=== PATIENT | male | born 1950 | race Caucasian/White ===

== ENCOUNTER 2016-12-22 13:13 | Inpatient (IN) | payer OTHER ==
[~2016-12-22] VITALS: Ht 177.8 cm; Wt 78.2 kg
[2016-12-22 14:04] LABS: BASOPHIL % 0.3 % (0-2); PLATELET COUNT 159 x10^3mcL (130-400)
[2016-12-22 14:08] LABS: RED CELL DISTRIBUTION WIDTH 15.1 % (11.5-14.5)
[2016-12-22 14:11] LABS: CALCIUM 8.7 mg/dL (8.5-10.1); CARBON DIOXIDE 22.7 mmol/L (21-32); CHLORIDE SERUM 100 mmol/L (98-107); CREATININE SERUM 0.7 mg/dL (0.7-1.3); GFR1 > 60 mL/min; GLUCOSE SERUM 121 mg/dL (74-106); POTASSIUM SERUM 3.4 mmol/L (3.5-5.1); SODIUM SERUM 140 mmol/L (136-145)
[2016-12-22 14:16] LABS: ALBUMIN 3.9 g/dL (3.4-5.0); ALKALINE PHOSPHATASE 128 U/L (46-116); ALT/SGPT 65 U/L (16-63); AST/SGOT 69 U/L (15-37); BILIRUBIN TOTAL 0.79 mg/dL (0.20-1.00)
[2016-12-22 15:56] LABS: AMPHETAMINE QUAL UR NONE DETECTED (NEG <=1000)
[2016-12-22 17:48] VITALS: BP 138/86
[2016-12-22 17:51] VITALS: Ht 177.8 cm; Wt 78.2 kg
[2016-12-22 18:15] LABS: PHOSPHOROUS 1.7 mg/dL (2.5-4.9)
[2016-12-22 18:17] LABS: MAGNESIUM 2.1 mg/dL (1.8-2.4)
[2016-12-22 18:18] LABS: CHOLESTEROL/HDL RATIO 1.9
[2016-12-22 18:22] LABS: T3 TOTAL 0.91 ng/mL
[2016-12-22 18:25] LABS: FREE T4 0.84 ng/dL (0.76-1.46); FREE THYROXINE INDEX 3.1 ug/dL (1.4-4.5); T4(THYROXINE) 8.8 ug/dL (4.7-13.3)
[2016-12-22 21:01] VITALS: BP 121/77
[2016-12-23 05:27] VITALS: BP 140/74
[2016-12-23 06:28] LABS: BASOPHIL % 0.4 % (0-2)
[2016-12-23 06:43] LABS: CALCIUM 8.5 mg/dL (8.5-10.1); CARBON DIOXIDE 28.8 mmol/L (21-32); CHLORIDE SERUM 107 mmol/L (98-107); CREATININE SERUM 0.8 mg/dL (0.7-1.3); GFR1 > 60 mL/min; GLUCOSE SERUM 92 mg/dL (74-106); MAGNESIUM 1.8 mg/dL (1.8-2.4); PHOSPHOROUS 3.7 mg/dL (2.5-4.9); POTASSIUM SERUM 3.8 mmol/L (3.5-5.1); SODIUM SERUM 145 mmol/L (136-145)
[2016-12-23 06:44] LABS: PLATELET COUNT 111 x10^3mcL (130-400); RED CELL DISTRIBUTION WIDTH 15.5 % (11.5-14.5)
[2016-12-23 09:43] VITALS: BP 135/91
[2016-12-23 14:00] VITALS: BP 125/84
[2016-12-23 18:23] VITALS: BP 117/87
[2016-12-23 21:31] VITALS: BP 122/90
[2016-12-24 06:06] VITALS: BP 121/94
[2016-12-24 06:26] LABS: CALCIUM 8.7 mg/dL (8.5-10.1); CARBON DIOXIDE 29.1 mmol/L (21-32); CHLORIDE SERUM 108 mmol/L (98-107); CREATININE SERUM 0.8 mg/dL (0.7-1.3); GFR1 > 60 mL/min; GLUCOSE SERUM 95 mg/dL (74-106); MAGNESIUM 1.8 mg/dL (1.8-2.4); PHOSPHOROUS 4.4 mg/dL (2.5-4.9); POTASSIUM SERUM 3.7 mmol/L (3.5-5.1); SODIUM SERUM 146 mmol/L (136-145)
[2016-12-24 07:17] LABS: BASOPHIL % 0.4 % (0-2); RED CELL DISTRIBUTION WIDTH 14.5 % (11.5-14.5)
[2016-12-24 07:18] LABS: PLATELET COUNT 102 x10^3mcL (130-400)
[2016-12-24 08:35] VITALS: BP 127/86
[2016-12-24] MEDS ORDERED: LIPI10 PO (08:44)
[2016-12-24] MEDS ORDERED: ZESTRIL5 MG PO (08:45)
[2016-12-24] MEDS ORDERED: ATIVAN0.5 M1 PO (08:46)
[2016-12-24 09:53] VITALS: BP 127/86
== END 2016-12-24 13:03 | disposition home or self-care (01) | DRG 391 ==
LOC: ED 13:13 → DU 16:48
PROVIDERS: Emergency Medicine; Family Medicine; ADMIT Family Medicine
DX: K21.9 Gastro-esophageal reflux disease without esophagitis (principal); N17.0 Acute kidney failure with tubular necrosis; G92 Toxic encephalopathy; F10.121 Alcohol abuse with intoxication delirium; E87.0 Hyperosmolality and hypernatremia; T51.0X1A Toxic effect of ethanol, accidental (unintentional), initial encounter; D69.59 Other secondary thrombocytopenia; E87.6 Hypokalemia; E87.8 Other disorders of electrolyte and fluid balance, not elsewhere classified; D64.9 Anemia, unspecified; E78.5 Hyperlipidemia, unspecified; E83.39 Other disorders of phosphorus metabolism; Z68.27 Body mass index [BMI] 27.0-27.9, adult; Y90.7 Blood alcohol level of 200-239 mg/100 ml
CPT/HCPCS: 80307; 84439; C9113; G0480; J2405; J3490; J7030; Q0092

== ENCOUNTER 2017-06-09 15:27 | Inpatient (IN) | payer OTHER ==
[~2017-06-09] VITALS: Ht 180.3 cm; Wt 77.3 kg
[~2017-06-09 15:27] MED LIST: ATIVAN0.5 M1 PO; LIPI10 PO; ZESTRIL5 MG PO
[2017-06-09 16:37] LABS: BASOPHIL % 0.3 % (0-2); PLATELET COUNT 159 x10^3mcL (130-400); RED CELL DISTRIBUTION WIDTH 13.9 % (11.5-14.5)
[2017-06-09 17:44] LABS: CALCIUM 9.3 mg/dL (8.5-10.1); CARBON DIOXIDE 24.6 mmol/L (21-32); CHLORIDE SERUM 100 mmol/L (98-107); CREATININE SERUM 0.9 mg/dL (0.7-1.3); GFR1 > 60 mL/min; GLUCOSE SERUM 131 mg/dL (74-106); POTASSIUM SERUM 3.7 mmol/L (3.5-5.1); SODIUM SERUM 141 mmol/L (136-145)
[2017-06-09 17:49] LABS: ALBUMIN 4.1 g/dL (3.4-5.0); ALKALINE PHOSPHATASE 130 U/L (46-116); ALT/SGPT 107 U/L (16-63); AST/SGOT 82 U/L (15-37); BILIRUBIN TOTAL 0.6 mg/dL (0.20-1.00)
[2017-06-09 17:54] LABS: TOTAL PROTEIN, SERUM 8.7 g/dL (6.4-8.2)
[2017-06-09] MEDS ORDERED: TRAVATAN Z5 ML OP (18:34)
[2017-06-09] MEDS ORDERED: DORZOLAMIDE HYD10 ML OU (18:35)
[2017-06-09 19:15] VITALS: BP 122/89
[2017-06-09 19:47] LABS: MAGNESIUM 2.1 mg/dL (1.8-2.4); PHOSPHOROUS 2.1 mg/dL (2.5-4.9)
[2017-06-09 19:48] LABS: T3 TOTAL 0.81 ng/mL
[2017-06-09 19:58] LABS: FREE T4 0.94 ng/dL (0.76-1.46); FREE THYROXINE INDEX 2.8 ug/dL (1.4-4.5); T4(THYROXINE) 8.1 ug/dL (4.7-13.3)
[2017-06-09 20:30] LABS: CHOLESTEROL/HDL RATIO 1.9
[2017-06-09 20:54] VITALS: BP 136/90
[2017-06-10 00:40] LABS: microscopic required? YES; urine erythrocyte NEGATIVE (NEGATIVE)
[2017-06-10 00:54] LABS: AMPHETAMINE QUAL UR NONE DETECTED (NEG <=1000)
[2017-06-10 05:33] VITALS: BP 129/84
[2017-06-10 06:39] LABS: CALCIUM 8.5 mg/dL (8.5-10.1); CARBON DIOXIDE 31.2 mmol/L (21-32); CHLORIDE SERUM 106 mmol/L (98-107); CREATININE SERUM 0.8 mg/dL (0.7-1.3); GFR1 > 60 mL/min; GLUCOSE SERUM 116 mg/dL (74-106); PHOSPHOROUS 2.8 mg/dL (2.5-4.9); POTASSIUM SERUM 3.4 mmol/L (3.5-5.1); SODIUM SERUM 142 mmol/L (136-145)
[2017-06-10 07:48] VITALS: BP 110/73
[2017-06-10] MEDS ORDERED: COMBIGAN5 ML OP (11:25)
[2017-06-10 13:44] VITALS: BP 127/95
[2017-06-10 17:59] VITALS: BP 137/99
[2017-06-10 21:29] VITALS: BP 122/82
[2017-06-11 05:43] VITALS: BP 142/89
[2017-06-11 06:41] LABS: BASOPHIL % 0.4 % (0-2); RED CELL DISTRIBUTION WIDTH 13.2 % (11.5-14.5)
[2017-06-11 06:52] LABS: CALCIUM 8.5 mg/dL (8.5-10.1); CARBON DIOXIDE 27.9 mmol/L (21-32); CHLORIDE SERUM 109 mmol/L (98-107); CREATININE SERUM 0.8 mg/dL (0.7-1.3); GFR1 > 60 mL/min; GLUCOSE SERUM 102 mg/dL (74-106); POTASSIUM SERUM 3.8 mmol/L (3.5-5.1); SODIUM SERUM 145 mmol/L (136-145)
[2017-06-11 07:34] LABS: PLATELET COUNT 108 x10^3mcL (130-400)
[2017-06-11 08:43] VITALS: BP 145/89
[2017-06-11 12:58] VITALS: BP 138/98
[2017-06-11 17:24] VITALS: BP 145/99
[2017-06-11 21:48] VITALS: BP 137/96
[2017-06-11 22:41] VITALS: BP 139/99
[2017-06-12 06:22] VITALS: BP 143/94
[2017-06-12 08:42] VITALS: BP 142/97
[2017-06-12] MEDS ORDERED: LAC30L PO (13:26)
[2017-06-12] MEDS ORDERED: ATI2I PO (13:26)
[2017-06-12] MEDS ORDERED: FOL1 PO (13:27)
[2017-06-12] MEDS ORDERED: THI100 PO (13:27)
[2017-06-12 14:28] VITALS: BP 139/89
[2017-06-12 14:29] VITALS: BP 139/89
== END 2017-06-12 15:48 | disposition home or self-care (01) | DRG 896 ==
LOC: ED 15:27 → EDBD 17:58 → DU 17:58
PROVIDERS: Emergency Medicine; ADMIT Student in an Organized Health Care Education/Training Program
DX: F10.231 Alcohol dependence with withdrawal delirium (principal); N17.0 Acute kidney failure with tubular necrosis; G92 Toxic encephalopathy; F10.229 Alcohol dependence with intoxication, unspecified; K72.90 Hepatic failure, unspecified without coma; D64.9 Anemia, unspecified; H70.91 Unspecified mastoiditis, right ear; R74.0 Nonspecific elevation of levels of transaminase and lactic acid dehydrogenase [LDH]; H40.9 Unspecified glaucoma; E78.2 Mixed hyperlipidemia; Z68.23 Body mass index [BMI] 23.0-23.9, adult; T51.0X1A Toxic effect of ethanol, accidental (unintentional), initial encounter
CPT/HCPCS: 83880; 84439; G0480; J0696; J1885; J2060; J2405; J2550; J7030; Q0092

== ENCOUNTER 2017-07-28 15:23 | Inpatient (IN) | payer OTHER ==
[~2017-07-28] VITALS: Ht 180.3 cm; Wt 76.4 kg
[~2017-07-28 15:23] MED LIST changes: +ATI2I PO; +COMBIGAN5 ML OP; +DORZOLAMIDE HYD10 ML OU; +FOL1 PO; +LAC30L PO; +THI100 PO; +TRAVATAN Z5 ML OP
--- NOTE | 2017-07-28 15:35 | NUR ---
PT BIBA C/O HEART PALPITATIONS, PER MEDIC PT HAS BEEN DRINKING ALL DAY. PLACED PT ON CM, VSS. PT A/O X 4, PT'S RESP E/U, PT ABLE TO SPEAK FULL SENTENCES. PT'S SIDERAILS UP X 2. PT GIVEN TO LIGHT. AWAITING DR GREENFIELD
[2017-07-28 16:38] LABS: BASOPHIL % 0.1 % (0-2); PLATELET COUNT 217 x10^3mcL (130-400); RED CELL DISTRIBUTION WIDTH 13.8 % (11.5-14.5)
[2017-07-28 16:56] LABS: CARBON DIOXIDE 17.8 mmol/L (21-32); CHLORIDE SERUM 105 mmol/L (98-107); CREATININE SERUM 0.8 mg/dL (0.7-1.3); GFR1 > 60 mL/min; GLUCOSE SERUM 91 mg/dL (74-106); POTASSIUM SERUM 4.3 mmol/L (3.5-5.1); SODIUM SERUM 142 mmol/L (136-145)
[2017-07-28 17:00] LABS: ALBUMIN 4.1 g/dL (3.4-5.0); ALKALINE PHOSPHATASE 129 U/L (46-116); ALT/SGPT 102 U/L (16-63); AST/SGOT 50 U/L (15-37); BILIRUBIN TOTAL 0.55 mg/dL (0.20-1.00); PHOSPHOROUS 3.5 mg/dL (2.5-4.9); URIC ACID 8.8 mg/dL (3.5-7.2)
[2017-07-28 17:01] LABS: CHOLESTEROL 288 mg/dL (<200); HDL CHOLESTEROL 119 mg/dL (40-60); TOTAL PROTEIN, SERUM 8.7 g/dL (6.4-8.2)
--- NOTE | 2017-07-28 17:44 | NUR ---
REPORT GIVEN TO VENKATA
--- NOTE | 2017-07-28 18:00 | NUR ---
RECEIVED FROM ER VIA [facility]. ABLE TO AMBULATE FROM [facility] TO B. MADE COMFORTABLE. ORIENT TO ROOM AND CALL LIGHT SYSTEM. HAS AROMA OF ALCOHOL. VITAL SIGNS TAKEN. ADMISSION COMPLETED BY YANG GRIGGS. TELE #27 SINUS TACH. DENIES CHEST DISCOMFORT OR PALPITATIONS. REPORTS "I FEEL A LITTLE SHAKEY. I HAVE NOT EATEN IN 4 DAYS, ONLY DRINKING ALOT. MOSTLY VODKA. PARAMEDICS SAID I FELL." NOTED SMALL ABRASION TO RIGHT KNEE. LBM TODAY. INSTRUCTED WITH NEED FOR URINE SAMPLE. CONTAINER AT BEDSIDE. DINNER MEAL ORDERED. SIDE RAILS UP X2. SEIZURE PRECAUTIONS/FALL PRECAUTIONS IN PLACE. INSTRUCTED TO CALL NURSE WHEN NEEDS TO GET OOB. VERBALIZED UNDERSTANDING. NO EDEMA. PULSES PRESENT. SCD APPLIED. SALINE LOCK RAC PATENT.
[2017-07-28 18:03] LABS: MAGNESIUM 2.3 mg/dL (1.8-2.4)
[2017-07-28 18:04] LABS: T3 TOTAL 0.75 ng/mL
[2017-07-28 18:06] LABS: CHOLESTEROL/HDL RATIO 2.6
[2017-07-28 18:13] VITALS: BP 140/95
[2017-07-28 18:14] LABS: FREE T4 0.91 ng/dL (0.76-1.46); FREE THYROXINE INDEX 2.5 ug/dL (1.4-4.5); T4(THYROXINE) 7.6 ug/dL (4.7-13.3)
--- NOTE | 2017-07-28 18:23 | NUR ---
RECEIVED PATIENT FROM ED VIA [facility], PATIENT ALERT AND ORIENTED, TELE # 27 SR/ST. IV ACCESS TO RAC WNL, NO C/O PAIN AT THIS TIME, ORIENTED PATIENT TO ROOM AND SURROUNDINGS, BED IN LOW POSIITOM, BED RAILS UP X 2, CALL LIGHT WITHIN REACH, WILL ENDORSE CARE TO PRIMARY NURSE VENKATA GRIGGS
--- NOTE | 2017-07-28 18:28 | NUR ---
LAB PRESENT. IVF NORMAL SALINE STARTED AT 90CC/HR. MED WITH ATIVAN 1MG PO ORDERED FOR TREMORS. ABD ULTRASOUND ORDERED. WILL BE NPO AFTER MIDNIGHT FOR ULTRASUOND AT 0600. PT MADE AWARE.
--- NOTE | 2017-07-28 19:20 | NUR ---
REPORT WITH YUKI GRIGGS AT BEDSIDE. CARE ENDORSED AT THIS TIME.
--- NOTE | 2017-07-28 19:45 | NUR ---
RECEIVED PATIENT IN BED AWAKE, ALERT AND ORIENTED WITH NO DISTRESS NOTED. TELE#27 ST ON MONITOR TREMORS NOTED. RESPIRATION EVEN AND NONLABOR WITH CLEAR BS SATTING AT 98 RA.IV TO RAC INTACT AND NS BOLUS INFUSING WELL. WILL CONTINUE TO MONITOR. CALL LIGHT WITHIN REACH.
--- NOTE | 2017-07-28 19:50 | NUR ---
PATIENT TO CAT SCAN HEAD VIA WHEELCHAIR ACCOMPANIED BY LIBRARY CLERICAL ASSISTANT.
--- NOTE | 2017-07-28 19:55 | NUR ---
MADE DR SNIDER AWARE OF LACTID ACID-5.8.
--- NOTE | 2017-07-28 20:37 | NUR ---
DR SNIDER MADE AWARE OF LACTIC ACID-5.8 AND RESULT OF CAT SCAN HEAD.
--- NOTE | 2017-07-28 20:40 | NUR ---
RECEIVED PATIENT IN BED AWAKE, ALERT AND ORIENTED WITH NO SIGN OF DISTRESS. BREATHING EASY AND NONLABOR SATTING AT 99% RA. TELE#27 ST ON 100'S ON MONITOR, DENIED CHESTPAIN. C/O LOOSE STOOL X3 DR PETTIT MADE AWARE. WILL CONTINUE TO MONITOR.
[2017-07-28 20:42] VITALS: BP 115/76
[2017-07-28 20:45] VITALS: BP 115/76
--- NOTE | 2017-07-28 20:50 | NUR ---
NS BOLUS DONE RECHECKED BP-115/76. WILL CONTINUE TO MONITOR.
--- NOTE | 2017-07-28 22:23 | NUR ---
PT'S LACTID ACID-4.4, ENDORSED TO PRIMARY NURSE DAVE.
--- NOTE | 2017-07-28 23:11 | NUR ---
C/O RT SIDED BODY PAIN MEDICATED WITH NORCO 1 TAB PO PRESCRIBED. WILL CONTINUE TO MONITOR.
--- NOTE | 2017-07-29 01:28 | NUR ---
STILL AWAKE, ANXIOUS AND AGITATED, ATIVAN 1MG PO GIVEN PRESCRIBED. WILL CONTINUE TO MONITOR.
[2017-07-29 03:32] LABS: urine erythrocyte NEGATIVE (NEGATIVE)
[2017-07-29 03:47] LABS: microscopic required? YES
[2017-07-29 03:49] LABS: AMPHETAMINE QUAL UR NONE DETECTED (NEG <=1000)
[2017-07-29 04:53] VITALS: BP 121/80
--- NOTE | 2017-07-29 05:00 | NUR ---
AWAKE MOST OF THE TIME C/O RT SIDE BODY PAIN X1 AND MEDCIATED PRESCRIBED. ALL NEEDS ATTENDED.
[2017-07-29 07:30] LABS: BASOPHIL % 0.2 % (0-2); PLATELET COUNT 153 x10^3mcL (130-400); RED CELL DISTRIBUTION WIDTH 14.1 % (11.5-14.5)
[2017-07-29 07:37] LABS: CARBON DIOXIDE 25.6 mmol/L (21-32); CHLORIDE SERUM 109 mmol/L (98-107); CREATININE SERUM 0.8 mg/dL (0.7-1.3); GFR1 > 60 mL/min; GLUCOSE SERUM 96 mg/dL (74-106); MAGNESIUM 1.9 mg/dL (1.8-2.4); PHOSPHOROUS 2.4 mg/dL (2.5-4.9); SODIUM SERUM 142 mmol/L (136-145)
--- NOTE | 2017-07-29 07:40 | NUR ---
RECEIVED THE PATIENT AWAKE AND ORIENTED TO PERSON, PLACE AND TIME. PATIENT STATED HAVING SOME ACHING TO RIGHT RIBS AT THIS TIME, BUT TOLERABLE. WILL MEDICATE FOR PAIN PRN. IVF NS VIA H/L TO RIGHT HAND, ONTHER H/L TO RAC. TELE # 27 READS SINUS RHYTHMS AT THIS TIME. CALL LIGHT WITHIN REACH. SIDE RAILS UP X3. SEIZURE PRECAUTION MAINTAINED.
--- NOTE | 2017-07-29 08:10 | NUR ---
DR. MORALEZ AND THE TEAM WERE MAKING ROUND TO SEE THE PATIENT. THE CARE PLAN WAS DISCUSSED WITH THE PATIENT, AND THE PATIENT AGREED WITH THE PLAN.
[2017-07-29 11:01] VITALS: BP 134/87
[2017-07-29 14:14] VITALS: BP 146/88
[2017-07-29 17:18] VITALS: BP 121/74
--- NOTE | 2017-07-29 18:46 | NUR ---
THE PATIENT WAS RESTING IN BED AFTER DINNER. NO EPISODES OF SEIZURE NOTED THROUGHOUT THE SHIFT. DR. SNIDER-RESIDENT WAS INFORMED OF THE XR OF RIGHT RIB.
--- NOTE | 2017-07-29 19:20 | NUR ---
PT AWAKE, A/O X4. NO ACUTE DISTRESS NOTED. PT REPORTS MODERATE PAIN TO R SIDE 6/10 BUT TOLERABLE AT THIS TIME. INFORMED PT THAT I WILL REASSESS AND MONITOR AND TO REPORT WHEN PAIN MED IS WANTED. PAIN MGT EDU. PROVIDED. PT REPORTS HALLUCINATING AND SEEING FIGURES ON GARG AND WINDOWS, PT REPORTS UNDERSTANDING THE S/SX OF ETOH WITHDRAWLS AND CONFIRMS HE HAS GONE THROUGH THIS BEFORE. PT STATES HALLUCINATIONS ARE NON-THREATENING AT THIS TIME AND HAVE NOT BEEN. PT DENIES ANY DIFFICULTY BREATHING OR CHEST PAIN AT THIS TIME. PT DENIES ANY DIZZINESS, HAYES OR SEIZURE ACTIVITY AT THIS TIME. SEIZURE PRECAUTIONS IN PLACE. PT REPORTS HAVING LOOSE STOOLS X7. PENDING STOOL SAMPLE. IV FLUID TO RIGHT HAND INFUSING PER MD ORDER. IV SITES X2 IN RA PATENT AND INTACT. ALL SAFETY MEASURES ENSURED. CALL LIGHT AND PERSONAL BELONGINGS WITHIN REACH. WILL CONTINUE TO MONITOR.
--- NOTE | 2017-07-29 19:25 | NUR ---
DR. BECKWITH-RESIDENT WAS AWARE OF THE PATIENT'S H/H TODAY; .
[2017-07-29 20:29] VITALS: BP 127/77
--- NOTE | 2017-07-29 20:35 | NUR ---
DR. PETTIT NOTIFIED AND AWARE OF PT REPORTING HALLUCINATIONS. PT STATES THEY ARE NON-THREATENING AT THIS TIME.
--- NOTE | 2017-07-29 20:45 | NUR ---
PT REFUSED TO WEAR ABDOMINAL BINDER FOR THE NIGHT. HE STATED THAT IT WILL MAKE HIM UNCOMFORTABLE TO SLEEP WITH AND WOULD LIKE TO WEAR IT IN THE MORNING INSTEAD.
--- NOTE | 2017-07-30 05:38 | NUR ---
PT REPORTS HAVING STRONG SHAKES AND JOLTS. NOTIFIED DR. PETTIT SCHEDULED ATIVAN GIVEN PER MD AND PRN ATIVAN EACH HR X2 ORDERED. WILL ENDORSE TO ONCOMING NURSE.
[2017-07-30 05:49] VITALS: BP 136/85
--- NOTE | 2017-07-30 06:04 | NUR ---
PT RESTED IN BED THROUGH THE NIGHT. WAS NORMALLY AWAKE DURING REGULAR ROUNDS AND CHECKING IN WITH PT. PT REPORTED GETTING UP MULTIPLE TIMES DURING THE NIGHT TO USE THE RESTROOM. HE STATES HAVING MANY LOOSE STOOLS X4-5. NO HAYES, DIZZINESS, CHEST PAIN, SOB NOTED FROM PT. PT ADMITS CONTINUING TO HAVE PAIN TO HIS RT TORSO. PT STATES HALLUCINATIONS HAVE GOTTEN BETTER. ALL SAFETY MEASURES HAVE BEEN MAINTAINED AND ALL PT NEEDS MET. CALL LIGHT AND PERSONAL BELONGINGS WITHIN REACH. WILL CONTINUE TO MONITOR AND ENDORSE TO ONCOMING AM NURSE.
[2017-07-30 06:29] LABS: BASOPHIL % 0.5 % (0-2); PLATELET COUNT 138 x10^3mcL (130-400); RED CELL DISTRIBUTION WIDTH 13.6 % (11.5-14.5)
--- NOTE | 2017-07-30 06:45 | NUR ---
PT WAS GIVEN 1 MG ATIVAN PRN PER MD ORDER. PT DENIES ANY FEELINGS OF SEIZURES AT THIS TIME.
[2017-07-30 06:47] LABS: CALCIUM 7.9 mg/dL (8.5-10.1); CARBON DIOXIDE 25.6 mmol/L (21-32); CHLORIDE SERUM 106 mmol/L (98-107); CREATININE SERUM 0.7 mg/dL (0.7-1.3); GFR1 > 60 mL/min; GLUCOSE SERUM 96 mg/dL (74-106); MAGNESIUM 1.6 mg/dL (1.8-2.4); POTASSIUM SERUM 3.4 mmol/L (3.5-5.1); SODIUM SERUM 139 mmol/L (136-145)
--- NOTE | 2017-07-30 07:25 | NUR ---
RECEIVED PATIENT AWAKE/ALERT IN BED NO DISTRESS NOTED; C/O PAIN TO RT RIB AREA 04/12; ABD BINDER IN PLACE; TELE # 27 NOTED; IV INTACT AND INFUSING WELL TO RH. INFORM PATIENT WILL CHECK ON PAIN MED. CALL LIGHT WITHIN REACH.
--- NOTE | 2017-07-30 07:40 | NUR ---
REPORT (+) MRSA NARES TO DR. BECKWITH AND MG 1.6
--- NOTE | 2017-07-30 08:34 | NUR ---
PATIENT SAT AT BEDSIDE EATING HIS BREAKFAST; ALL DUE MEDS GIVEN; ATIVAN 1MG PO FOR ANXIETY AND NORCO 1 TAB PO GIVEN FOR PAIN 04/12 RT RIB. NEEDS ATTENDED. CONT TO MONITOR.
[2017-07-30 09:38] VITALS: BP 139/83
--- NOTE | 2017-07-30 09:45 | NUR ---
PATIENT SLEEPING; AROUSABLE REPORT PAIN IS 4/10 AT REST. STATES VERY SLEEPY INFORM PATIENT THE EFFECT OF NORCO AND ATIVEN MAKE PATIENT SLEEPY. BACTROBAN OINTMENT APPLIED TO NARES AND HIBICLEN WASH TO GENERALIZED SKIN AREA ORDERED. NEEDS ANTICIPATED.
--- NOTE | 2017-07-30 10:23 | NUR ---
MG-LEYLAER 2GM IVPB GIVEN BY STUDENT CRISTIANO WITH INSTRUCTOR.
[2017-07-30 12:38] VITALS: BP 144/92
--- NOTE | 2017-07-30 13:04 | NUR ---
PATIENT SAT UP EATING AT THIS TIME; DUE MEDS GIVEN. NO COMPLAINT. NEEDS ANTICIPATED.
--- NOTE | 2017-07-30 14:05 | NUR ---
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 PSHx:None Labs: (07/30) B, Ca:7.9L, M.6L, H/H:10.9/32L (07/28) Uric acid:8.8H, AST:50H, ALT:102H, TH, Chol:288H, LDL:139H, HDL:119H, Lactic acid:4.H Meds: Coalce, Lactinex, Mg sulfate, Prilosec, NS IV, Vitamin B1, Zofran Diet:Cardiac PO Intake: (07/29) B:80%, L:80%, D:100% (07/30) B:50% (Average: 78%) Ht: 71in, 5'11" Wt:168#, 76.4kg BMI:23.5kg/m2 (normal) IBW: 172#,78kg %IBW: 98% UBW:175# per pt Age:67 y/o male Food Allergies:NKFA Skin:intact Alfredo:21 Edema:None GI:active bowel sounds Last BM:07/29 Nursing Trigger: appears underwt/malnourihsed, admitted with potential risk diagnosis, poor PO intake>3days. Pt was admitted with Heart Palpitations likely secondary to alcohol withdrawal, r/o ACS, toxic Encephalopathy secndary to Alcohol Intoxication with likely alcohol withdrawal, JOSE M pending amd D/O ANS with possible syncope and possible CHI, possible CVA, per H&P. Per progress notes 07/30, per nursing patient had episodes of hallucination overnight. PO ativan q1h PRN on board. Patient C diff and MRSA positive. Per bed huddle this morning, pt is pending consult with Dr. Kerr for rib pain and consult with Dr. Chairez for alcoholism. Pt will stay for correction of electrolytes. During visit, observed pt laying in bed with no family at bedside. Pt reports to fair appetite due to the food tasting bland. Explained to pt he is on a cardiac diet and recommended to change diet to low fat due to elevated lipid panel. Pt stated he never had issues with his cholesterol or Triglycerides and requested to change diet to Regular. RD spoke to Dr. Nieves who changed diet to Regular per pts preference. Problem with: N: No V: No D:Yes x 3 days C:No Problems with: Chewing:No Swallowing: No Current appetite: Fair Recent wt change-7# wt loss %wt change:4% significant Vitamin/Supplement use:Vitamin D and Vitamin B Special diet at home:Pt states he is concious of his diet and will start to eat "healthier" when he starts to gain weight Physical activity: Walking and used to play tennis up until a year ago when he hurt his arm Education: pt declined nutrition education at this time Estimated Nutritional Needs Based on actual body weight 76kg Energy: 1900-2280kcal/d (25-30kcal/kg for maintenance) Protein: 78-91g/d (1.0-1.2g/kg for repletion) Fluid: 1900-2280ml/d (1 ml/kcal) or per doctor Nutrition Diagnosis 1. Unintentional wt loss related to possible alcoholism as evidenced by 7# wt loss and 4% weight change within the past month. Intervention 1. Recommend change diet from Cardiac to Regular per pt's request. 2. Recommend adjust BM regimen due to pt with loose stools. Monitor/Evaluate Goal: PO intake at least 75% of estimated needs Monitor: PO intake, Labs (lipid panel), GI function F/U in 7 days as low risk (08/06)
--- NOTE | 2017-07-30 14:07 | NUR ---
1. Recommend change diet from Cardiac to Regular per pt's request. 2. Recommend adjust BM regimen due to pt with loose stools.
--- NOTE | 2017-07-30 15:20 | NUR ---
PATIENT RESTING IN BED NO COMPLAINT, ATIVAN 1MG PO GIVEN; REPLACE NEW BAG IVF. RH IV SITE INTACT ; DRESSING CAME OFF REPLACE NEW DRESSING. CALL LIGHT WITHIN REACH.
[2017-07-30 16:13] VITALS: BP 141/92
--- NOTE | 2017-07-30 18:29 | NUR ---
PATIENT RESTING IN BED LISTENING TO MUSIC FROM LAPTOP; STATES PAIN IS COMFORTABLE 3/10. NEEDS ANTICIPATED.
--- NOTE | 2017-07-30 19:21 | NUR ---
RECEIVED PT FROM PREVIUOS SHIFT NURSE. PT AOX4. TELE #27, NSR. DENIES CP/PRESSURE. PULSES PRESENT, NO EDEMA NOTED. LUNG SOUNDS CLEAR, ON RA. DENIES SOB/DIFFICULTY BREATHING. BOWEL SOUNDS ACTIVE. VOIDS FREELY. AMBULATORY. R. KNEE ABRASION, SUBSTITUTE BUS DRIVER. IV IN R. WRIST, INTACT AND PATENT. BED IN LOWEST POSITION. CALL LIGHT WITHIN REACH. WILL CONTINUE TO MONITOR.
[2017-07-30 20:29] VITALS: BP 139/87
--- NOTE | 2017-07-31 02:42 | NUR ---
PT RESTING IN BED. RR EVEN AND UNLABORED. NO ACUTE DISTRESS NOTED. CALL LIGHT WITHIN REACH. WILL CONTINUE TO MONITOR.
[2017-07-31 04:51] VITALS: BP 151/96
--- NOTE | 2017-07-31 06:34 | NUR ---
TELE #27 CLEANED AND RETURNED TO TELE STATION.
--- NOTE | 2017-07-31 07:12 | NUR ---
RECEIVED PATIENT AWAKE/ALERT IN BED C/O 05/13 PAIN TO RT RIB NORCO WAS GIVEN BY PREVIOUS RN. NO DISTRESS NOTED. IV INTACT AND INFUSING WELL. TELE D/C PATIENT IS MED-SURG. POC EXPLAINED. CALL LIGHT WITHIN REACH.
[2017-07-31 07:17] LABS: CARBON DIOXIDE 26.9 mmol/L (21-32); CHLORIDE SERUM 106 mmol/L (98-107); CREATININE SERUM 0.6 mg/dL (0.7-1.3); GFR1 > 60 mL/min; GLUCOSE SERUM 96 mg/dL (74-106); MAGNESIUM 2.1 mg/dL (1.8-2.4); PHOSPHOROUS 3.5 mg/dL (2.5-4.9); POTASSIUM SERUM 3.3 mmol/L (3.5-5.1); SODIUM SERUM 141 mmol/L (136-145)
[2017-07-31 08:19] LABS: BASOPHIL % 0.2 % (0-2); PLATELET COUNT 143 x10^3mcL (130-400); RED CELL DISTRIBUTION WIDTH 13.4 % (11.5-14.5)
--- NOTE | 2017-07-31 08:20 | NUR ---
DR. SKELTON AND MEDICAL TEAM ROUND DISCUSS POC WITH PATIENT; CONT IV FLAGYL AND POSS D/C TOMORROW IF PATIENT'S CONDITION IMPROVED. DR. BECKWITH WAS MADE AWARE K 3.3 WILL REPLACED PER DOCTOR.
--- NOTE | 2017-07-31 09:50 | NUR ---
DR. STEWARD ALREADY SPOKE TO PATIENT PER REQUEST.
[2017-07-31 10:02] VITALS: BP 116/78
--- NOTE | 2017-07-31 11:35 | NUR ---
PATIENT UP WALKING IN THE ROOM; STATES PAIN 04/12 NORCO 7.5/325MG PO GIVEN AND DUE MEDS GIVEN. K-RIDER 40MEQ IV X 1 GIVEN FOR K 3.3; NEED ANTICIPATED.
--- NOTE | 2017-07-31 13:00 | NUR ---
PATIENT SIT UP IN BED NO COMPLAINT. IV INFILTRATED TO RH; RESTART NEW IV TO LFA #20G; CONT KRIDER AND IVF ORDERED. BED LINENS CHANGED PER PATIENT REQUEST, NEEDS ATTENDED. CONT TO MONITOR.
--- NOTE | 2017-07-31 14:24 | NUR ---
PATIENT RESTING IN BED NO COMPLAINT, DUE MEDS GIVEN. NEEDS ANTICIPATED. CALL LIGHT WITHIN REACH.
--- NOTE | 2017-07-31 17:30 | NUR ---
PATIENT BACK FROM BATHROOM NO DISTRESS NOTED, NORCO 1 TAB PO GIVEN FOR 7/10 PAIN TO RT RIBS; DUE MEDS GIVEN; DINNER TRAY GIVEN TO PATIENT, NEEDS ANTICIPATED. IV INTACT AND PATENT.
[2017-07-31 17:36] VITALS: BP 123/85
--- NOTE | 2017-07-31 18:30 | NUR ---
PATIENT RESTING IN BED NO COMPLAINT, NEEDS ANTICIPATED. IV INTACT AND PATENT. CALL LIGHT WITHIN REACH.
--- NOTE | 2017-07-31 23:35 | NUR ---
PT C/O ABDOMINAL PAIN AT THIS TIME. PRN NORCO GIVEN. ENCOURAGED PT TO INCREASE PO INTAKE TO AVOID CONSTIPATION. PT AGREES. NO ACUTE DISTRESS NOTED. CALL LIGHT WITHIN REACH. WILL CONTINUE TO MONITOR
--- NOTE | 2017-08-01 02:24 | NUR ---
PT IS LAYING IN BED ON HIS PERSONAL LAPTOP. NO DISTRESS NOTED AT THIS TIME. CALL LIGHT WITHIN REACH. WILL CONTINUE TO MONITOR
[2017-08-01 06:36] VITALS: BP 134/89
[2017-08-01 07:10] LABS: BASOPHIL % 0.4 % (0-2); PLATELET COUNT 149 x10^3mcL (130-400); RED CELL DISTRIBUTION WIDTH 13.7 % (11.5-14.5)
--- NOTE | 2017-08-01 07:17 | NUR ---
PT C/O PAIN AT THIS TIME IN THE ABDOMINAL AREA OF THE RIBS. PRN NORCO GIVEN PER EMAR. ENCOURAGED PT TO INCREASE PO INTAKE TO AVOID CONSTIPATION. PT AGRESS. NO ACUTE DISTRESS AT THIS TIME. ABDOMINAL BINDER IN PLACE. CALL LIGHT WITHIN REACH.
--- NOTE | 2017-08-01 07:23 | NUR ---
PATIENT RECEIVED AND SEEN. PATIENT IS AAOX4. APPEARS CALM. ON SEIZURE PRECAUTIONS. NO TREMORS NOTED AT THIS TIME. PATIENT IS A MED SURG PATIENT, NO TELE MONITOR. DENIES CHEST PAIN. RESPIRATIONS EVEN AND UNLABORED ON ROOM AIR, LUNGS CTA. PT STATES HE HAD A LOOSE BM THIS MONING. PT HAS AMBULATORY BINDER IN PLACE. DRY SCAB PRESENT ON RIGHT KNEE. NS INFUSING PER ORDER, APPEARS WNL. CALL LIGHT WITHIN REACH. ALL SAFETY MEASURES IN PLACE. WILL CONTINUE TO MONITOR.
[2017-08-01 07:24] LABS: CALCIUM 8.5 mg/dL (8.5-10.1); CARBON DIOXIDE 26.4 mmol/L (21-32); CHLORIDE SERUM 107 mmol/L (98-107); CREATININE SERUM 0.7 mg/dL (0.7-1.3); GFR1 > 60 mL/min; GLUCOSE SERUM 94 mg/dL (74-106); MAGNESIUM 2.3 mg/dL (1.8-2.4); PHOSPHOROUS 3.7 mg/dL (2.5-4.9); POTASSIUM SERUM 3.6 mmol/L (3.5-5.1); SODIUM SERUM 139 mmol/L (136-145)
[2017-08-01 09:00] VITALS: BP 136/90
--- NOTE | 2017-08-01 09:05 | NUR ---
DR SKELTON AND MEDICAL TEAM VISITED PATIENT THIS MORNING AT BEDSIDE. PT WAS UPDATED ON PLAN OF CARE. ALL QUESTIONS ANSWERED. PT AGREEABLE TO PLAN OF CARE.
[2017-08-01] MEDS ORDERED: LIB10 PO ×2 (10:25→10:42)
[2017-08-01] MEDS ORDERED: FLOMAX0.4 MG PO (10:27)
[2017-08-01] MEDS ORDERED: FOL1 PO (10:28)
[2017-08-01] MEDS ORDERED: THI100 PO (10:29)
[2017-08-01] MEDS ORDERED: NOVAPLUS VANCO125 MG PO (10:34)
[2017-08-01] MEDS ORDERED: LAC PO (10:34)
--- NOTE | 2017-08-01 13:55 | NUR ---
PT C/O PAIN TO HIS RIGHT RIBS. DR BECKWITH WAS NOTIFIED AND CAME TO SEE PATIENT AT BEDSIDE. PRN NORCO GIVEN TO PT. PHYSICIAN AWARE. WILL CONTINUE TO MONITOR PATIENT AT THIS TIME. CALL LIGHT WITHIN REACH.
[2017-08-01 14:31] VITALS: BP 136/90
--- NOTE | 2017-08-01 15:00 | NUR ---
DISCHARGE TEACHING PERFORMED AT THIS TIME. ALL QUESTIONS ANSWERED. PT VERBALIZED UNDERSTANDING. PT RECEIVED DISCHARGE PACKET INCLUDING PAPER PRESCRIPTION FOR PAIN MEDICINE. PT STATED THAT HIS FRIEND IS WAITING DOWNSTAIRS TO GIVE HIM A RIDE.
--- NOTE | 2017-08-01 15:12 | NUR ---
PATIENT HAS BEEN DISCHARGED. PATIENT REMOVED ALL OF HIS BAGS FROM THE ROOM THAT CONTAINED HIS PERSONAL BELONGINGS. PT TOOK DISCHARGE PACKET. IV WAS PREVIOUSLY REMOVED WITH CATHETER TIP INTACT, NO BLEEDING NOTED FROM IV SITE. PATIENT HAS BEEN ESCORTED OUT BY HOSPITAL STAFF MEMBER AND PT HAS BEEN DRIVEN HOME BY HIS FRIEND THAT CAME TO PICK HIM UP.
== END 2017-08-01 15:13 | disposition home or self-care (01) | DRG 896 ==
LOC: ED 15:23 → DU 17:04 → MU 17:04 → DU 17:55 → MU 07-31 06:37
PROVIDERS: Emergency Medicine; Family Medicine; ADMIT Family Medicine
DX: F10.239 Alcohol dependence with withdrawal, unspecified (principal); N17.0 Acute kidney failure with tubular necrosis; G92 Toxic encephalopathy; E87.2 Acidosis; A04.72 Enterocolitis due to Clostridium difficile, not specified as recurrent; S22.31XA Fracture of one rib, right side, initial encounter for closed fracture; F10.229 Alcohol dependence with intoxication, unspecified; H40.9 Unspecified glaucoma; E87.6 Hypokalemia; D64.9 Anemia, unspecified; E83.42 Hypomagnesemia; R00.2 Palpitations; F32.9 Major depressive disorder, single episode, unspecified; S81.011A Laceration without foreign body, right knee, initial encounter; R74.0 Nonspecific elevation of levels of transaminase and lactic acid dehydrogenase [LDH]; E78.5 Hyperlipidemia, unspecified; E79.0 Hyperuricemia without signs of inflammatory arthritis and tophaceous disease; W17.89XA Other fall from one level to another, initial encounter; Y93.89 Activity, other specified; Y92.89 Other specified places as the place of occurrence of the external cause; Z22.322 Carrier or suspected carrier of Methicillin resistant Staphylococcus aureus; Z68.23 Body mass index [BMI] 23.0-23.9, adult
CPT/HCPCS: 83880; 84439; 87046; 87046-59; 94150; G0480; J2543; J3475; J3480; J3490; J7030; Q0092